=== PATIENT | male | born 1985 | race African-American/Black ===

== ENCOUNTER 2016-07-31 07:33 | Emergency (ER) | payer OTHER ==
[~2016-07-31 07:33] MED LIST: FLEXERIL PO; VICODIN 5/500 T1 TAB PO
[2016-07-31 07:56] LABS: URINE SOURCE CLEAN CATCH
[2016-07-31 08:14] LABS: URINE APPEARANCE CLEAR; URINE BILIRUBIN NEG (NEG); URINE BLOOD NEG (NEG); URINE COLOR YELLOW; URINE GLUCOSE NEG (NEG); URINE KETONE NEG (NEG); URINE LEUKOCYTE ESTERASE 1+ (NEG); URINE NITRATE NEG (NEG); URINE PROTEIN NEG (NEG); URINE SPECIFIC GRAVITY 1.023 (1.003-1.035)
[2016-07-31 08:16] LABS: CULTURE INDICATED? YES; URBCS1 AUWI 0-2 /[HPF] (0-2); URINE BACTERIA AUWI NEG (NEGATIVE); URINE SQUAMOUS EPITHELIAL CELL OCC /[HPF]; UWBCS1 AUWI 25-50 (0-5)
== END 2016-07-31 09:35 | disposition home or self-care (01) ==
LOC: CED 07:33
PROVIDERS: Nurse Practitioner
DX: N34.2 Other urethritis (principal); Z88.8 Allergy status to other drugs, medicaments and biological substances
CPT/HCPCS: 81003; 87086; 96372; 99284; J0696